=== PATIENT | male | born 1960 | race Caucasian/White ===

== ENCOUNTER 2018-06-19 13:23 | Emergency (ER) | payer BC ==
[~2018-06-19] VITALS: Ht 195.6 cm; Wt 154.2 kg
[2018-06-19] MEDS ORDERED: COREG6.25 MG PO (13:36)
[2018-06-19] MEDS ORDERED: FLECAINIDE ACET50 MG PO (13:37)
[2018-06-19] MEDS ORDERED: LOSARTAN POTASS25 MG PO (13:38)
[2018-06-19] MEDS ORDERED: XARELTO10 MG PO (13:39)
[2018-06-19] MEDS ORDERED: K-TAB ER20 MEQ PO (13:39)
[2018-06-19] MEDS ORDERED: LASIX20 MG PO (13:39)
[2018-06-19] MEDS ORDERED: OXYCODONE HCL5 MG PO (19:14)
== END 2018-06-19 19:36 | disposition home or self-care (01) ==
LOC: ED 13:23
PROC: 0PSJXZZ Reposition Left Radius, External Approach (ICD-10-PCS; principal; 2018-06-19)
DX: S52.502A Unspecified fracture of the lower end of left radius, initial encounter for closed fracture (principal); S52.602A Unspecified fracture of lower end of left ulna, initial encounter for closed fracture; S70.12XA Contusion of left thigh, initial encounter; I10 Essential (primary) hypertension; Z87.891 Personal history of nicotine dependence; Z88.0 Allergy status to penicillin; Z79.899 Other long term (current) drug therapy; W10.9XXA Fall (on) (from) unspecified stairs and steps, initial encounter; Y92.520 Airport as the place of occurrence of the external cause
CPT/HCPCS: 25605; 70450; 73090; 73110; 73552; 80048; 85025; 96374; 96375; 96376; 99284-25; J1170; J2405